=== PATIENT | female | born 1950 | race Caucasian/White ===

== ENCOUNTER 2023-08-10 08:44 | Day surgery (SDC) | payer MEDICARE ==
[~2023-08-10] VITALS: Ht 154.9 cm; Wt 53.4 kg
[~2023-08-10 08:44] MED LIST: ASPIRIN E.C. 8181 MG PO; COZAAR 50MG50 MG/TAB PO; LR 1,000 ML IV SCH; NORCO 325 MG-51 TAB PO; TOPROL XL 25MG25 MG PO; VITAMIN B122500 MCG SL
[2023-08-10 09:26] VITALS: BP 109/60; PULSE 57; TEMP 97.2
[2023-08-10] MEDS ORDERED: REGLAN 10MG10 MG/TAB PO (09:31)
[2023-08-10] MEDS ORDERED: ZOFRAN 4MG T4 MG/TAB PO (09:32)
[2023-08-10] MEDS ORDERED: DECADRON 4MG TAB4 MG PO (09:33)
--- NOTE | 2023-08-10 09:40 | NUR ---
The patient was brought back to [facility] via her wheeled walker and transferred herself independently to the cart and appered to tolerate the activity well. Vital signs obtained. Consent signed. 20G IV started in right hand with one stick, LR Infusing without difficulty. Assessment completed. Home medicatins reconcilled. The patient's son dropped her off and is heading to work. The nurse will call him when she is ready to be discharged.
[2023-08-10] MEDS ORDERED: Lidocaine PF 2% (20 MG/ML) 5 ML VIAL ONE (10:36)
[2023-08-10] MEDS ORDERED: fentaNYL 50 MCG/ML 2 ML VIAL ONE (10:36)
[2023-08-10] MEDS ORDERED: Lidocaine PF 2% (20 MG/ML) 10 ML POLY AMP IJ ONE ×2 (11:04)
[2023-08-10] MEDS ORDERED: ePHEDrine 50 MG/ML VIAL ONE (11:06)
[2023-08-10] MEDS ORDERED: Ondansetron 4 MG/2 ML VIAL IV PRN ×2 (11:15→12:00)
[2023-08-10] MEDS ORDERED: Meperidine 50 MG/ML 1 ML VIAL IV PRN (11:15)
[2023-08-10] MEDS ORDERED: droPERidol 2.5 MG/ML 2 ML VIAL IV PRN (11:15)
[2023-08-10] MEDS ORDERED: HYDROmorphone 1 MG/1 ML SYRINGE [PACU/SDC ONLY] IV PRN (11:15)
[2023-08-10] MEDS ORDERED: fentaNYL 50 MCG/ML 1 ML SYRINGE/VIAL [PACU/SDC ONLY] IV PRN (11:15)
[2023-08-10] MEDS ORDERED: Morphine 2 MG/1 ML VIAL [PACU/SDC ONLY] IV PRN (11:15)
[2023-08-10 11:37] VITALS: BP 103/53; PULSE 64; TEMP 97.3
--- NOTE | 2023-08-10 11:37 | NUR ---
The patient arrived back to [facility] from the operating room and appears alert and oriented. The patient denies any pain or nausea at this time. The patient's dressing to her left neck and upper chest appear clean, dry and intact. Post opertive vital signs were started at this time. The patient agrees to try a muffin and ice water. Call light is within reach. The patient denies any further needs at this time.
[2023-08-10 11:52] VITALS: BP 115/57; PULSE 75
--- NOTE | 2023-08-10 11:52 | NUR ---
The patient appears to be tolerating the food and drink well. The patient continues to deny any pain or nausea at this time. Vital signs appear stable. The patient denies any further needs at this time.
[2023-08-10] MEDS ORDERED: Morphine 4 MG/ML VIAL IV PRN (12:00)
[2023-08-10 12:07] VITALS: BP 117/46; PULSE 62
--- NOTE | 2023-08-10 12:07 | NUR ---
Discharge instructions were reviewed with the patient at this time. She verbalized understanding and questions were answered at this time. The patient's IV to her right hand was removed and a pressure dressing was applied to the site. The patient's port is to be left accessed with a granda needle in place for chemotherapy tomorrow. The nurse instructed the patient to get dressed and notify the staff when she is ready to be escorted out.
--- NOTE | 2023-08-10 12:20 | NUR ---
The patient was escorted out via wheelchair to a private vehicle by ANAMARIA Johnson. The patient's son was got from the waiting room and followed the patient and the nurse out to his private vehicle. The patient's belongings and discharge paperwork were sent with her. The patient's son is present to drive her home.
== END 2023-08-10 12:20 | disposition home or self-care (01) ==
LOC: SDCO 08:44
DX: C34.81 Malignant neoplasm of overlapping sites of right bronchus and lung (principal); C78.7 Secondary malignant neoplasm of liver and intrahepatic bile duct; Z87.891 Personal history of nicotine dependence; Z95.5 Presence of coronary angioplasty implant and graft
CPT/HCPCS: C1788; J1644; J2704; J3010; J7120

== ENCOUNTER 2023-08-14 10:28 | Emergency (ER) | payer MEDICARE ==
[~2023-08-14] VITALS: Ht 154.9 cm; Wt 53.6 kg
[~2023-08-14 10:28] MED LIST changes: +DECADRON 4MG TAB4 MG PO; -LR 1,000 ML IV SCH; +REGLAN 10MG10 MG/TAB PO; +ZOFRAN 4MG T4 MG/TAB PO
[2023-08-14 11:28] LABS: HEMATOCRIT 37.3 % (37.0-47.0); HEMOGLOBIN 11.8 g/dl (12.5-16.0); MEAN CELL VOLUME 85 fl (80.0-100.0); MEAN CORPUSCULAR HEMOGLOBIN 27 pg (27-31); MEAN CORPUSCULAR HGB CONC 32 g/dl (33.0-37.0); MEAN PLATELET VOLUME 9.4 fl (7.4-10.4); PLATELET COUNT 295 K/mm3 (130-400); RED BLOOD COUNT 4.41 M/mm3 (4.10-5.30); REDCELL DISTRIBUTION WIDTH-CV 17.4 % (11.5-14.5)
[2023-08-14 11:47] LABS: ALANINE AMINOTRANSFERASE 30 U/L (0-55); ALBUMIN 2.6 g/dL (3.4-4.8); ALKALINE PHOSPHATASE 487 U/L (40-150); ANION GAP 14 mmol/L (7-16); AST,SGOT 52 U/L (5-34); BILIRUBIN,TOTAL 0.7 mg/dL (0.2-1.2); BLOOD UREA NITROGEN 17 mg/dL (10-20); CALCIUM 9.1 mg/dL (8.4-10.2); CHLORIDE 101 mEq/L (98-107); CREATININE, serum 0.68 mg/dL (0.57-1.11); GLUCOSE 94 mg/dL (70-99); LIPASE 89 U/L (8-78); POTASSIUM 3.5 mEq/L (3.5-4.5); SODIUM 136 mEq/L (136-145); TOTAL PROTEIN 6.4 g/dl (6.2-8.1)
[2023-08-14 11:55] LABS: TROPONIN-I < 0.010 ng/mL (0.00-0.033)
[2023-08-14 12:14] LABS: INR 1.1 (0.8-3.0); PROTHROMBIN TIME 12.4 SECONDS (9.7-12.8)
[2023-08-14] MEDS ORDERED: Iohexol 300 - 100 ML VIAL IV ONE (12:25)
[2023-08-14] MEDS ORDERED: NS 100 ML IV SCH (12:26)
[2023-08-14 12:29] LABS: D-DIMER > 5250.00 ng/mLDDu (200-230)
[2023-08-14 13:01] LABS: LYMPHOCYTE 7 % (20.0-51.0); NEUTROPHILS 90 % (42.0-75.2)
[2023-08-14 13:03] LABS: ANISOCYTOSIS 1+; HYPOCHROMIA 1+; PLATELET ESTIMATE NORMAL (NORMAL); POLYCHROMASIA 1+; STOMATOCYTE 1+
[2023-08-14] MEDS ORDERED: traMADol 50 MG TAB PO ONE (13:15)
[2023-08-14] MEDS ORDERED: ULTRAM 50MG TAB50 MG PO (14:03)
[2023-08-14 14:14] VITALS: BP 128/67; PULSE 83; TEMP 98
== END 2023-08-14 14:15 | disposition home or self-care (01) ==
LOC: COL.ER 10:28
PROVIDERS: Nurse Practitioner Primary Care
DX: R07.9 Chest pain, unspecified (principal); C34.90 Malignant neoplasm of unspecified part of unspecified bronchus or lung; C79.9 Secondary malignant neoplasm of unspecified site
CPT/HCPCS: Q9967